=== PATIENT | male | born 1980 | race Caucasian/White ===

== ENCOUNTER → 2017-04-02 | Outpatient (CLI) | payer OTHER | LOC: HYPER 02-15 07:51 | DX: I87.2 Venous insufficiency (chronic) (peripheral) (principal); L97.811 Non-pressure chronic ulcer of other part of right lower leg limited to breakdown of skin; E66.01 Morbid (severe) obesity due to excess calories; Z87.891 Personal history of nicotine dependence ==

== ENCOUNTER → 2017-04-10 | Outpatient (CLI) | payer OTHER | LOC: HYPER 07:23 | DX: S81.801D Unspecified open wound, right lower leg, subsequent encounter (principal); I87.2 Venous insufficiency (chronic) (peripheral); E66.01 Morbid (severe) obesity due to excess calories; Z68.43 Body mass index [BMI] 50.0-59.9, adult; Z72.89 Other problems related to lifestyle; X58.XXXD Exposure to other specified factors, subsequent encounter ==

== ENCOUNTER → 2017-04-16 | Outpatient (CLI) | payer OTHER | LOC: HYPER 07:40 | DX: I87.2 Venous insufficiency (chronic) (peripheral) (principal); L97.811 Non-pressure chronic ulcer of other part of right lower leg limited to breakdown of skin; E66.01 Morbid (severe) obesity due to excess calories; R60.0 Localized edema; Z72.89 Other problems related to lifestyle ==

== ENCOUNTER → 2017-04-24 | Outpatient (CLI) | payer OTHER | LOC: HYPER 07:04 | DX: S81.001D Unspecified open wound, right knee, subsequent encounter (principal); I87.2 Venous insufficiency (chronic) (peripheral); E66.01 Morbid (severe) obesity due to excess calories; Z68.43 Body mass index [BMI] 50.0-59.9, adult; Z72.89 Other problems related to lifestyle; X58.XXXD Exposure to other specified factors, subsequent encounter ==

== ENCOUNTER → 2017-05-09 | Outpatient (CLI) | payer OTHER | LOC: HYPER 07:01 | DX: I87.2 Venous insufficiency (chronic) (peripheral) (principal); E66.01 Morbid (severe) obesity due to excess calories; R60.0 Localized edema; R21 Rash and other nonspecific skin eruption; Z72.89 Other problems related to lifestyle ==

== ENCOUNTER → 2017-05-17 | Outpatient (CLI) | payer OTHER | LOC: HYPER 07:14 | DX: S91.001D Unspecified open wound, right ankle, subsequent encounter (principal); I87.2 Venous insufficiency (chronic) (peripheral); E66.01 Morbid (severe) obesity due to excess calories; Z68.43 Body mass index [BMI] 50.0-59.9, adult; Z72.89 Other problems related to lifestyle; X58.XXXD Exposure to other specified factors, subsequent encounter ==

== ENCOUNTER → 2017-06-01 | Outpatient (CLI) | payer OTHER | LOC: HYPER 08:21 | DX: S91.001D Unspecified open wound, right ankle, subsequent encounter (principal); I87.2 Venous insufficiency (chronic) (peripheral); E66.01 Morbid (severe) obesity due to excess calories; Z68.43 Body mass index [BMI] 50.0-59.9, adult; Z72.89 Other problems related to lifestyle; X58.XXXD Exposure to other specified factors, subsequent encounter ==

== ENCOUNTER → 2017-06-19 | Outpatient (CLI) | payer OTHER | LOC: HYPER 06:46 | DX: S91.001D Unspecified open wound, right ankle, subsequent encounter (principal); I87.2 Venous insufficiency (chronic) (peripheral); E66.01 Morbid (severe) obesity due to excess calories; Z72.89 Other problems related to lifestyle; X58.XXXD Exposure to other specified factors, subsequent encounter ==